=== PATIENT | female | born 1955 | race Hispanic/Latino ===

== ENCOUNTER 2016-09-20 21:15 | Emergency (ER) | payer SELFPAY ==
[2016-09-20 21:53] LABS: #Basophils 0.1 thou/uL (0.0-0.2); #Eosinphils 0.1 thou/uL (0.0-0.7); #Lymphocytes 1.6 thou/uL (1.20-3.40); #Monocytes 0.5 thou/uL (0.11-0.59); #Neutrophils 8.7 thou/uL (1.40-6.50); %Eosinophils 0.7 % (0.0-10.0); %Lymphocytes 14.4 % (21.0-51.0); %Monocytes 4.9 % (0.0-10.0); Hemoglobin 13.9 g/dL (12.0-16.0); Mean Corpuscular HGB CONC 33.3 g/dL (32.0-36.0); Mean Corpuscular Hemoglobin 30.1 pg (27.0-31.0); Mean Corpuscular Volume 90.5 fl (81.0-99.0); Mean Platelet Volume 10.3 fL (7.4-10.4); Platelet Count 200 thou/uL (130-400); RBC Distribution Width 11.6 % (11.5-14.5)
[2016-09-20] MEDS ORDERED: Sodium Chloride 0.9% 1,000 ML ONE ×2 (22:01→22:57)
[2016-09-20] MEDS ORDERED: Acetaminophen 500 MG TAB ONE (22:01)
[2016-09-20 22:12] LABS: ALT (SGPT) 12 U/L (8-55); AST (SGOT) 15 U/L (5-34); Alkaline Phosphatase 96 U/L (40-150); Anion Gap 18 mmol/L (10-20); BUN (Urea Nitrogen) 19 mg/dL (9.8-20.1); Bilirubin, Total 0.4 mg/dL (0.2-1.2); Calc. Creatinine Clearance 0 mL/min (70-130); Calcium 9.8 mg/dL (7.8-10.44); Carbon Dioxide 23 mmol/L (23-31); Chloride 95 mmol/L (98-107); Estimated GFR-MDRD 66; Globulin 3.8 g/dL (2.4-3.5); Glucose 402 mg/dL (80-115); Protein, Total 7.8 g/dL (6.0-8.3); Sodium 132 mmol/L (136-145)
[2016-09-20] MEDS ORDERED: Insulin Regular 300 UNITS/3 ML VIAL ONE (22:19)
[2016-09-20 23:44] LABS: Clarity Clear (Clear); Glucose, Urine (Dipstick) 500 mg/dL (Negative)
[2016-09-20 23:45] LABS: Bilirubin Negative (Negative); Blood, Urine Negative (Negative); Specific Gravity, Urine 1.011 (1.002-1.036)
[2016-09-20 23:46] LABS: Leukocyte Negative (Negative); Nitrite Negative (Negative); Protein, Urine (Dipstick) Negative (Neg-Trace); Urobilinogen 0.2 mg/dL (0.2-1.0); pH, Urine 6.5 (5.0-9.0)
[2016-09-21 00:11] LABS: CKMB 1.7 ng/mL (0-6.6); Troponin I Less than 0.010 ng/mL (< 0.028)
== END 2016-09-21 00:30 | disposition short-term general hospital (02) ==
LOC: NAV ERS 21:15
DX: E11.65 Type 2 diabetes mellitus with hyperglycemia (principal); R00.0 Tachycardia, unspecified; E11.9 Type 2 diabetes mellitus without complications; I10 Essential (primary) hypertension; Z79.84 Long term (current) use of oral hypoglycemic drugs; Z79.899 Other long term (current) drug therapy
CPT/HCPCS: 36415; 36416; 80053; 81003; 82553; 83605; 84484; 85025; 87040; 87081; 87430; 93005; 96361; 96374; J1815; J7050

== ENCOUNTER 2018-07-08 06:38 | Emergency (ER) | payer SELFPAY ==
[2018-07-08 07:14] LABS: #Basophils 0.1 thou/uL (0.0-0.2); #Eosinphils 0.1 thou/uL (0.0-0.7); #Lymphocytes 1.6 thou/uL (1.20-3.40); #Monocytes 0.5 thou/uL (0.11-0.59); #Neutrophils 4.1 thou/uL (1.40-6.50); %Basophils 1.2 % (0.0-1.0); %Eosinophils 1.7 % (0.0-10.0); %Lymphocytes 24.7 % (21.0-51.0); %Monocytes 7.3 % (0.0-10.0); %Neutrophils 65.1 % (42.0-75.0); Hemoglobin 11.3 g/dL (12.0-16.0); Mean Corpuscular HGB CONC 32.5 g/dL (32.0-36.0); Mean Corpuscular Hemoglobin 29.2 pg (27.0-31.0); Mean Corpuscular Volume 89.8 fL (78.0-98.0); Mean Platelet Volume 8.7 fL (7.4-10.4); Platelet Count 256 thou/uL (130-400); RBC Distribution Width 12.2 % (11.5-14.5); Red Blood Cell (RBC) Count 3.87 mill/uL (4.20-5.40); White Blood Cell (WBC) Count 6.3 thou/uL (4.8-10.8)
[2018-07-08 07:30] LABS: ALT (SGPT) 12 U/L (8-55); AST (SGOT) 21 U/L (5-34); Albumin 4.1 g/dL (3.4-4.8); Alkaline Phosphatase 55 U/L (40-150); Anion Gap 16 mmol/L (10-20); BUN (Urea Nitrogen) 19 mg/dL (9.8-20.1); Bilirubin, Total 0.3 mg/dL (0.2-1.2); Calc. Creatinine Clearance 0 mL/min (70-130); Calcium 10.2 mg/dL (7.8-10.44); Carbon Dioxide 24 mmol/L (23-31); Chloride 101 mmol/L (98-107); Estimated GFR-MDRD 56; Globulin 3.1 g/dL (2.4-3.5); Glucose 197 mg/dL (80-115); Lipase 20 U/L (8-78); Magnesium 1.3 mg/dL (1.6-2.6); Protein, Total 7.2 g/dL (6.0-8.3); Sodium 137 mmol/L (136-145)
--- NOTE | 2018-07-08 08:38 | RAD ---
FExam: Chest one view HISTORY:Pain Comparison: FINDINGS: Cardiac silhouette: Normal Pulmonary vessels: Normal Costophrenic angles: Hazy opacity in the left lung base, likely representing pleural fluid LUNGS: No masses or consolidation. Pneumothorax: None Osseous abnormalities: None IMPRESSION: Small left-sided pleural effusion.
== END 2018-07-08 08:49 | disposition home or self-care (01) ==
LOC: NAV ERS 06:38
DX: I10 Essential (primary) hypertension (principal); E11.9 Type 2 diabetes mellitus without complications; E78.5 Hyperlipidemia, unspecified; Z86.73 Personal history of transient ischemic attack (TIA), and cerebral infarction without residual deficits; Z79.84 Long term (current) use of oral hypoglycemic drugs; Z79.82 Long term (current) use of aspirin; Z79.899 Other long term (current) drug therapy
CPT/HCPCS: 71045; 80053; 82550; 83690; 83735; 84484; 85025; 93005; 94760

== ENCOUNTER 2018-07-13 10:45 | Emergency (ER) | payer SELFPAY ==
[~2018-07-13 10:45] MED LIST: Iopamidol 370 76% 100 ML VIAL ONE
[2018-07-13 11:44] LABS: #Basophils 0.1 thou/uL (0.0-0.2); #Eosinphils 0.1 thou/uL (0.0-0.7); #Lymphocytes 1.3 thou/uL (1.20-3.40); #Monocytes 0.3 thou/uL (0.11-0.59); %Basophils 1.1 % (0.0-1.0); %Eosinophils 0.9 % (0.0-10.0); %Lymphocytes 23.1 % (21.0-51.0); %Monocytes 5.1 % (0.0-10.0); %Neutrophils 69.8 % (42.0-75.0); Mean Corpuscular HGB CONC 32.4 g/dL (32.0-36.0); Mean Corpuscular Hemoglobin 29.1 pg (27.0-31.0); Mean Corpuscular Volume 89.9 fL (78.0-98.0); Mean Platelet Volume 8.5 fL (7.4-10.4); Platelet Count 283 thou/uL (130-400); RBC Distribution Width 11.9 % (11.5-14.5); White Blood Cell (WBC) Count 5.8 thou/uL (4.8-10.8)
[2018-07-13] MEDS ORDERED: HYDROcodone/Acetaminophen 5/325 mg Tablet ONE ×2 (11:54→13:17)
[2018-07-13 12:06] LABS: ALT (SGPT) 10 U/L (8-55); AST (SGOT) 23 U/L (5-34); Alkaline Phosphatase 51 U/L (40-150); Anion Gap 15 mmol/L (10-20); BUN (Urea Nitrogen) 14 mg/dL (9.8-20.1); Bilirubin, Total 0.3 mg/dL (0.2-1.2); Calc. Creatinine Clearance 0 mL/min (70-130); Calcium 10.2 mg/dL (7.8-10.44); Carbon Dioxide 21 mmol/L (23-31); Chloride 99 mmol/L (98-107); Estimated GFR-MDRD 62; Globulin 3.4 g/dL (2.4-3.5); Glucose 288 mg/dL (80-115); Potassium 3.9 mmol/L (3.5-5.1); Protein, Total 7.4 g/dL (6.0-8.3); Sodium 131 mmol/L (136-145)
--- NOTE | 2018-07-13 12:09 | RAD ---
FPortable chest radiograph: 07/13/2018 COMPARISON: 07/08/2018 HISTORY:Dyspnea FINDINGS: Heart and mediastinal contours unremarkable. Lungs are clear. No acute osseous abnormality. IMPRESSION: Unremarkable frontal chest radiograph
--- NOTE | 2018-07-13 12:19 | CT ---
FCT brain noncontrast: 07/13/2018 12:10 PM HISTORY: 63-year-old female with hypertension COMPARISON: None FINDINGS: At the anterior superior portion of the right frontal lobe, there is a moderate size region of hetero geneously low attenuation. The central core of this low-attenuation is of very low in density, repres enting encephalomalacia and gliosis. The surrounding portions are less hypodense, but they also proba pipe represent encephalomalacia and gliosis, although the possibility of a superimposed acute process with edema is not excluded. In the contralateral left frontal lobe cortex and underlying white matter, there is a smaller region of such low attenuation. There is no acute intra-axial or extra-axial hemorrhage. No obstructive hydrocephalus, mass effect, m idline shift, or acute calvarial fracture. IMPRESSION: 1. No acute intracranial hemorrhage. 2. 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 3. Difficult to completely rule out the possibility of edema adjacent to the encephalomalacia and gli osis on the right, although unlikely.
[2018-07-13] MEDS ORDERED: cloNIDine 0.1 MG TAB ONE (13:53)
--- NOTE | 2018-07-13 15:05 | CT ---
FCT angiogram neck with contrast CT angiogram head with contrast: 07/13/2018 2:25 PM HISTORY: 63-year-old female with hypertension, headache, and cervicalgia TECHNIQUE: IV contrast bolus injection. Arterial bolus chasing technique scan from slightly inferior to rachana to vertex of head. Coronal and sagittal 3-D MIP reconstructions. FINDINGS: Aortic arch: No dissection or aneurysm. Brachiocephalic: No high-grade stenosis Right subclavian: No high-grade stenosis. Right vertebral: Normal Left vertebral: Very diminutive. Appears to be patent. Right common carotid: No stenosis Right internal carotid: Large calcified plaque at origin causing mild stenosis. The rest of the right internal carotid is normal. Left common carotid: Beginning approximately 4 to 4.5 cm distal to its origin, there is a large nonca lcified plaque measuring 2 cm in craniocaudal dimension causing greater than 75% stenosis of the vess el, severe stenosis. Left internal carotid: Occluded approximately 0.7 cm distal to its origin. The supraclinoid left internal carotid is reconstituted via an anterior communicating artery. No occl usion or high-grade short segment focal stenosis of M1 segment of right middle cerebral artery, A1 an d A2 segments of bilateral anterior cerebral arteries, (although the left A1 segment is diminutive), basilar artery, or posterior cerebral arteries. No high-grade short segment stenosis or occlusion of M1 segment of left middle cerebral artery, but the left M1 is slightly smaller in caliber diffusely t horta the right. IMPRESSION: 1. Chronic occlusion of left internal carotid artery. 2. Large noncalcified atheromatous plaque causing severe stenosis of left common carotid artery at it s midpoint. 3. Diminutive left vertebral artery.
== END 2018-07-13 15:18 | disposition short-term general hospital (02) ==
LOC: NAV ERS 10:45 → MERGE 10:45 → NAV ERS 15:18
DX: I16.0 Hypertensive urgency (principal); M54.2 Cervicalgia; E11.9 Type 2 diabetes mellitus without complications; E78.5 Hyperlipidemia, unspecified; Z79.899 Other long term (current) drug therapy; Z79.82 Long term (current) use of aspirin; Z79.84 Long term (current) use of oral hypoglycemic drugs
CPT/HCPCS: 36416; 70450; 70496; 70498; 71045; 80053; 83880; 84484; 85025; 93005; 94760; Q9967